=== PATIENT | male | born 1965 | race Caucasian/White ===

== ENCOUNTER 2018-10-21 16:11 | Inpatient (IN) | payer MEDICAID ==
[2018-10-21] MEDS: LORAZEPAM 2 MG INJ IV ×2 (16:30→16:43)
[2018-10-21 16:36] LABS: ADD MAN DIFF? NO
[2018-10-21 16:39] LABS: ABNORMAL IP MESSAGE 1; BASOPHIL # 0.1 10^3/ul (0.0-0.1); BASOPHILS % 0.5 % (0.0-2.0); EOSINOPHILS # 0.3 10^3/ul (0.0-0.5); EOSINOPHILS % 2.3 % (0.0-7.0); HEMATOCRIT 40.8 % (42.0-52.0); HEMOGLOBIN 13.9 g/dl (14.0-18.0); LYMPHOCYTES # 5.3 10^3/ul (0.8-2.9); LYMPHOCYTES % 40.9 % (15.0-51.0); MEAN CORPUSCULAR HEMOGLOBIN 28.8 pg (29.0-33.0); MEAN CORPUSCULAR HGB CONC 34.1 g/dl (32.0-37.0); MEAN CORPUSCULAR VOLUME 84.6 fl (82.0-101.0); MEAN PLATELET VOLUME 11.5 fl (7.4-10.4); MONOCYTES % 7.7 % (0.0-11.0); NEUTROPHIL # 6.3 10^3/ul (1.6-7.5); NEUTROPHILS % 48.1 % (39.0-77.0); PLATELET COUNT 322 10^3/UL (140-415); POSITIVE DIFF @See below; RED BLOOD COUNT 4.82 10^6/ul (4.70-6.10); RED CELL DISTRIBUTION WIDTH 12.7 % (11.5-14.5)
[2018-10-21 16:55] LABS: ALANINE AMINOTRANSFERASE 127 IU/L (13-69); ALBUMIN 4.5 g/dl (3.3-4.9); ALBUMIN/GLOBULIN RATIO 1.55; ALKALINE PHOSPHATASE 84 IU/L (42-121); ANION GAP 18 (5-13); ASPARTATE AMINO TRANSFERASE 181 IU/L (15-46); BILIRUBIN,INDIRECT 0.5 mg/dl (0-1.1); BILIRUBIN,TOTAL 0.5 mg/dl (0.2-1.3); BLOOD UREA NITROGEN 26 mg/dl (7-20); CALCIUM 8.9 mg/dl (8.4-10.2); CARBON DIOXIDE 19 mmol/L (21-31); CHLORIDE 106 mmol/L (97-110); CREATININE 1.76 mg/dl (0.61-1.24); Estimated GFR 41 mL/min (>60); GLUCOSE 246 mg/dl (70-220); POTASSIUM 3.6 mmol/L (3.5-5.1); SODIUM 143 mmol/L (135-144); TOTAL PROTEIN 7.4 g/dl (6.1-8.1)
[2018-10-21 16:58] LABS: INR 1.02; PROTIME 13.5 Sec (11.9-14.9); PT RATIO 1.1
[2018-10-21 16:59] LABS: PARTIAL THROMBOPLASTIN TIME 28.3 Sec (23.0-35.0)
[2018-10-21 17:07] LABS: TROPONIN-I < 0.012 ng/ml (0.000-0.120)
[2018-10-21 17:12] LABS: FREE THYROXINE INDEX (Calc) 2.41 ug/ml (0.65-3.89); T3 UPTAKE 36.5 % (23.5-40.5); T4 (THYROXINE) 6.6 ug/dl (5.5-11.0)
[2018-10-21] MEDS: CEFEPIME 2GM/50 ML (PMX) 50 ML IVPB (17:25)
[2018-10-21] MEDS: SODIUM CHLORIDE 0.9% 1L BAG IV* (17:26)
[2018-10-21] MEDS: VECURONIUM 10 MG VIAL IV (17:34)
[2018-10-21 17:36] LABS: ADD UMIC YES; UR ASCORBIC ACID NEGATIVE (NEGATIVE); UR BACTERIA FEW /HPF (NONE SEEN); UR BILIRUBIN (Dip) NEGATIVE (NEGATIVE); UR BLOOD (Dip) 1+ mg/dL (NEGATIVE); UR CLARITY SLIGHTLY CLOUDY (CLEAR); UR COLOR YELLOW (YELLOW); UR GLUCOSE (Dip) 3+ mg/dL (NEGATIVE); UR KETONES (Dip) TRACE mg/dL (NEGATIVE); UR LEUKOCYTE ESTERASE (Dip) NEGATIVE Leu/ul (NEGATIVE); UR MUCUS FEW /HPF (NONE SEEN); UR NITRITE (Dip) NEGATIVE (NEGATIVE); UR RBC 3 /HPF (0-5); UR SPECIFIC GRAVITY (Dip) 1.015 (1.003-1.030); UR TOTAL PROTEIN (Dip) 2+ mg/dl (NEGATIVE); UR UROBILINOGEN (Dip) NEGATIVE (NEGATIVE); UR WBC 3 /HPF (0-5)
[2018-10-21] MEDS: VANCOMYCIN 1 GM (PMX) 250 ML IVPB (17:47)
[2018-10-21 18:02] LABS: ETHANOL < 10.0 mg/dl (0-0)
[2018-10-21 18:03] LABS: AMPHETAMINE/METHAMPHETAMINE Negative (NEGATIVE); BARBITURATES Negative (NEGATIVE); BENZODIAZEPINES Negative (NEGATIVE); CANNABINOIDS Negative (NEGATIVE); COCAINE Negative (NEGATIVE); OPIATES Negative (NEGATIVE)
[2018-10-21] MEDS ORDERED: PROPOFOL 100 ML IV (18:41)
[2018-10-21] MEDS ORDERED: PROPOFOL 100 ML (18:44)
[2018-10-21] MEDS: PROPOFOL 100 ML IV (18:50)
[2018-10-21 19:06] LABS: LACTIC ACID 2.4 mmol/L (0.5-2.0)
[2018-10-21] MEDS ORDERED: NACL 0.9% 3 ML SYG IV (19:30)
[2018-10-21 19:58] LABS: AADO2 Arterial 131.2 mmHg (7.0-24.0); Allen Test ACCEPTAB; Arterial Base Excess -5.8 mmol/L (-3.0-3); Arterial Blood Gas Oxygen Sat 99.3 mmHG (95.0-98.0); Arterial COHb 0.3 % (0.0-3.0); Arterial Fraction of Oxyhgb 98.7 % (93.0-99.0); Arterial HCO3 20.2 mmol/L (22.0-26.0); Arterial MetHb 0.3 % (0.0-1.5); Arterial pCO2 41.6 mmhg (35-45); MODE VENT - AC; Site Right Radial
[2018-10-21] MEDS ORDERED: VANCOMYCIN IV PER PHARMACY XX (20:00)
[2018-10-21] MEDS: THIAMINE 100 MG in SOD CHLORIDE 0.9% 100 ML IV (20:08)
[2018-10-21] MEDS: SOD CHLORIDE 0.9% 1,000 ML IV (20:08)
[2018-10-21] MEDS: THIAMINE 200 MG INJ IV (20:09)
[2018-10-21] MEDS: VANCOMYCIN 500 MG (PMX) 100 ML IVPB (20:51)
[2018-10-21 21:21] LABS: LACTIC ACID 2.2 mmol/L (0.5-2.0)
[2018-10-21] MEDS: PIPER-TAZO 3.375 GM IV (PMX) 100 ML IVPB (22:06)
[2018-10-21] MEDS: INSULIN GLARGINE [LANTus] (100 UNITS/ML) SYG SC (23:48)
[2018-10-21] MEDS: INSULIN ASPART [NOVOLOG] 3 ML PEN SC (23:49)
[2018-10-22] MEDS: PROPOFOL 100 ML IV ×4 (00:40→20:52)
[2018-10-22] MEDS: INSULIN ASPART [NOVOLOG] 3 ML PEN SC ×6 (01:00→20:12)
[2018-10-22] MEDS: ACCU-CHEK XX (01:09)
[2018-10-22] MEDS: PIPER-TAZO 3.375 GM IV (PMX) 100 ML IVPB ×3 (05:06→22:05)
[2018-10-22 05:36] LABS: ADD MAN DIFF? NO
[2018-10-22 05:47] LABS: BASOPHILS % 0.3 % (0.0-2.0); EOSINOPHILS # 0.1 10^3/ul (0.0-0.5); EOSINOPHILS % 0.8 % (0.0-7.0); HEMATOCRIT 34.9 % (42.0-52.0); HEMOGLOBIN 11.7 g/dl (14.0-18.0); LYMPHOCYTES # 1.4 10^3/ul (0.8-2.9); MEAN CORPUSCULAR HEMOGLOBIN 29.1 pg (29.0-33.0); MEAN CORPUSCULAR HGB CONC 33.5 g/dl (32.0-37.0); MEAN CORPUSCULAR VOLUME 86.8 fl (82.0-101.0); MEAN PLATELET VOLUME 11.5 fl (7.4-10.4); MONOCYTES % 9.1 % (0.0-11.0); NEUTROPHIL # 8.4 10^3/ul (1.6-7.5); NEUTROPHILS % 76.4 % (39.0-77.0); PLATELET COUNT 228 10^3/UL (140-415); RED BLOOD COUNT 4.02 10^6/ul (4.70-6.10); RED CELL DISTRIBUTION WIDTH 12.7 % (11.5-14.5)
[2018-10-22 05:55] LABS: ALANINE AMINOTRANSFERASE 93 IU/L (13-69); ALBUMIN 3.4 g/dl (3.3-4.9); ALKALINE PHOSPHATASE 65 IU/L (42-121); ASPARTATE AMINO TRANSFERASE 116 IU/L (15-46); BILIRUBIN,INDIRECT 0.6 mg/dl (0-1.1); BILIRUBIN,TOTAL 0.6 mg/dl (0.2-1.3)
[2018-10-22 06:04] LABS: ALANINE AMINOTRANSFERASE 98 IU/L (13-69); ALBUMIN 3.3 g/dl (3.3-4.9); ALBUMIN/GLOBULIN RATIO 1.26; ALKALINE PHOSPHATASE 54 IU/L (42-121); ANION GAP 7 (5-13); ASPARTATE AMINO TRANSFERASE 128 IU/L (15-46); BILIRUBIN,INDIRECT 0.7 mg/dl (0-1.1); BILIRUBIN,TOTAL 0.7 mg/dl (0.2-1.3); BLOOD UREA NITROGEN 18 mg/dl (7-20); CALCIUM 7.9 mg/dl (8.4-10.2); CARBON DIOXIDE 23 mmol/L (21-31); CHLORIDE 111 mmol/L (97-110); CREATININE 0.73 mg/dl (0.61-1.24); Estimated GFR > 60 mL/min (>60); GLUCOSE 75 mg/dl (70-220); POTASSIUM 4.4 mmol/L (3.5-5.1); SODIUM 141 mmol/L (135-144); TOTAL PROTEIN 5.9 g/dl (6.1-8.1)
[2018-10-22 06:06] LABS: AADO2 Arterial 108.5 mmHg (7.0-24.0); Allen Test ACCEPTAB; Arterial Base Excess -1.6 mmol/L (-3.0-3); Arterial Blood Gas Oxygen Sat 98.3 mmHG (95.0-98.0); Arterial COHb 0.3 % (0.0-3.0); Arterial Fraction of Oxyhgb 97.8 % (93.0-99.0); Arterial HCO3 21.8 mmol/L (22.0-26.0); Arterial MetHb 0.2 % (0.0-1.5); Arterial pCO2 32.7 mmhg (35-45); Blood Gas Mean Airway Pressure 10; MODE VENT - AC; Site Right Radial
[2018-10-22 07:26] LABS: CREATINE KINASE 701 IU/L (23-200)
[2018-10-22 07:39] LABS: CK INDEX 2.8
[2018-10-22] MEDS ORDERED: HEPARIN 1000 UNITS/ML 10 ML INJ IV (08:00)
[2018-10-22] MEDS: HEPARIN 25000 UNITS/250 ML 250 ML IV (08:18)
[2018-10-22] MEDS: HEPARIN 1000 UNITS/ML 10 ML INJ IV (08:20)
[2018-10-22] MEDS: SOD CHLORIDE 0.9% 1,000 ML IV ×2 (08:23→20:17)
[2018-10-22 08:39] LABS: ADD MAN DIFF? NO
[2018-10-22 08:49] LABS: BASOPHILS % 0.2 % (0.0-2.0); EOSINOPHILS # 0.1 10^3/ul (0.0-0.5); EOSINOPHILS % 1.3 % (0.0-7.0); HEMATOCRIT 33.5 % (42.0-52.0); HEMOGLOBIN 11.6 g/dl (14.0-18.0); LYMPHOCYTES # 1.5 10^3/ul (0.8-2.9); MEAN CORPUSCULAR HEMOGLOBIN 29.2 pg (29.0-33.0); MEAN CORPUSCULAR HGB CONC 34.6 g/dl (32.0-37.0); MEAN CORPUSCULAR VOLUME 84.4 fl (82.0-101.0); MEAN PLATELET VOLUME 11.4 fl (7.4-10.4); MONOCYTE # 0.9 10^3/ul (0.3-0.9); MONOCYTES % 8.6 % (0.0-11.0); NEUTROPHIL # 7.4 10^3/ul (1.6-7.5); NEUTROPHILS % 74.5 % (39.0-77.0); PLATELET COUNT 233 10^3/UL (140-415); RED BLOOD COUNT 3.97 10^6/ul (4.70-6.10); RED CELL DISTRIBUTION WIDTH 12.8 % (11.5-14.5)
[2018-10-22 08:49] LABS: WHITE BLOOD COUNT 9.9 10^3/ul (4.8-10.8)
[2018-10-22 09:08] LABS: INR 1.11; PROTIME 14.4 Sec (11.9-14.9); PT RATIO 1.1
[2018-10-22 09:09] LABS: PARTIAL THROMBOPLASTIN TIME 32.1 Sec (23.0-35.0)
[2018-10-22] MEDS: FENTAnyl (DRIP) 1000 mcg/100mL 100 ML IV (09:23)
[2018-10-22 10:39] LABS: CREATINE KINASE 676 IU/L (23-200)
[2018-10-22] MEDS: ASPIRIN 325 MG TAB PO (11:11)
[2018-10-22] MEDS: METOPROLOL 25 MG TAB PO ×2 (14:15→20:17)
[2018-10-22] MEDS: VANCOMYCIN 1 GM 250 ML IVPB (14:17)
[2018-10-22 15:41] LABS: PARTIAL THROMBOPLASTIN TIME 61.5 Sec (23.0-35.0)
[2018-10-22 17:06] LABS: AMMONIA 17 umol/l (9-30)
[2018-10-22] MEDS: ACYCLOVIR 500 MG in SOD CHLORIDE 0.9% 100 ML IVPB ×2 (17:33→22:41)
[2018-10-22] MEDS: INSULIN GLARGINE [LANTus] (100 UNITS/ML) SYG SC (20:00)
[2018-10-22] MEDS: ACETAMINOPHEN 650MG/20.3ML CUP NGT (20:39)
[2018-10-22 21:54] LABS: PARTIAL THROMBOPLASTIN TIME 52.7 Sec (23.0-35.0)
[2018-10-22 23:12] LABS: HIV 1&2 ANTIBODY NEGATIVE (NEGATIVE)
[2018-10-23] MEDS: INSULIN ASPART [NOVOLOG] 3 ML PEN SC ×6 (01:00→20:12)
[2018-10-23] MEDS: ACCU-CHEK XX (01:19)
[2018-10-23] MEDS: VANCOMYCIN 1 GM 250 ML IVPB ×2 (01:21→11:36)
[2018-10-23] MEDS: PROPOFOL 100 ML IV ×2 (02:50→11:40)
[2018-10-23 03:12] LABS: ADD MAN DIFF? NO
[2018-10-23 03:13] LABS: WHITE BLOOD COUNT 6.6 10^3/ul (4.8-10.8)
[2018-10-23 03:13] LABS: BASOPHILS % 0.5 % (0.0-2.0); EOSINOPHILS # 0.2 10^3/ul (0.0-0.5); EOSINOPHILS % 2.7 % (0.0-7.0); LYMPHOCYTES # 1.6 10^3/ul (0.8-2.9); LYMPHOCYTES % 24.1 % (15.0-51.0); MEAN PLATELET VOLUME 11.7 fl (7.4-10.4); MONOCYTE # 0.6 10^3/ul (0.3-0.9); MONOCYTES % 8.9 % (0.0-11.0); NEUTROPHIL # 4.2 10^3/ul (1.6-7.5); NEUTROPHILS % 63.3 % (39.0-77.0); PLATELET COUNT 196 10^3/UL (140-415); POSITIVE DIFF @See below
[2018-10-23 03:34] LABS: PARTIAL THROMBOPLASTIN TIME 67.5 Sec (23.0-35.0)
[2018-10-23 03:35] LABS: ALANINE AMINOTRANSFERASE 75 IU/L (13-69); ALBUMIN 2.5 g/dl (3.3-4.9); ALKALINE PHOSPHATASE 52 IU/L (42-121); ANION GAP 10 (5-13); ASPARTATE AMINO TRANSFERASE 69 IU/L (15-46); BILIRUBIN,INDIRECT 0.3 mg/dl (0-1.1); BILIRUBIN,TOTAL 0.3 mg/dl (0.2-1.3); BLOOD UREA NITROGEN 9 mg/dl (7-20); CALCIUM 6.1 mg/dl (8.4-10.2); CARBON DIOXIDE 17 mmol/L (21-31); CHLORIDE 105 mmol/L (97-110); CREATININE 0.64 mg/dl (0.61-1.24); Estimated GFR > 60 mL/min (>60); GLUCOSE 82 mg/dl (70-220); POTASSIUM 3.2 mmol/L (3.5-5.1); SODIUM 132 mmol/L (135-144)
[2018-10-23 04:15] LABS: HEMOGLOBIN 10.3 g/dl (14.0-18.0); RED BLOOD COUNT 3.42 10^6/ul (4.70-6.10)
[2018-10-23 04:16] LABS: HEMATOCRIT 29.1 % (42.0-52.0); MEAN CORPUSCULAR HEMOGLOBIN 30.1 pg (29.0-33.0); MEAN CORPUSCULAR HGB CONC 35.4 g/dl (32.0-37.0); MEAN CORPUSCULAR VOLUME 85.1 fl (82.0-101.0)
[2018-10-23 04:26] LABS: PHOSPHORUS 2.6 mg/dl (2.5-4.9)
[2018-10-23 04:26] LABS: MAGNESIUM 1.6 mg/dl (1.7-2.5)
[2018-10-23] MEDS: POTASSIUM CHLORIDE 20 MEQ POWDER FOR ORAL SOLN NGT (05:21)
[2018-10-23] MEDS: PIPER-TAZO 3.375 GM IV (PMX) 100 ML IVPB ×3 (05:22→21:24)
[2018-10-23] MEDS: MAGNESIUM SULFATE 3 GM in DEXTROSE 5% 100 ML IVPB (06:21)
[2018-10-23] MEDS: ACYCLOVIR 500 MG in SOD CHLORIDE 0.9% 100 ML IVPB ×3 (06:21→21:24)
[2018-10-23] MEDS: ASPIRIN 81 MG TAB PO (08:15)
[2018-10-23] MEDS: HEPARIN 25000 UNITS/250 ML 250 ML IV (08:17)
[2018-10-23] MEDS: METOPROLOL 25 MG TAB PO ×2 (08:18→20:11)
[2018-10-23] MEDS: SOD CHLORIDE 0.9% 1,000 ML IV ×2 (08:20→11:00)
[2018-10-23 09:17] LABS: ANION GAP 5 (5-13); BLOOD UREA NITROGEN 10 mg/dl (7-20); CALCIUM 7.6 mg/dl (8.4-10.2); CARBON DIOXIDE 23 mmol/L (21-31); CHLORIDE 113 mmol/L (97-110); CREATININE 0.78 mg/dl (0.61-1.24); Estimated GFR > 60 mL/min (>60); GLUCOSE 113 mg/dl (70-220); MAGNESIUM 2.6 mg/dl (1.7-2.5); POTASSIUM 4.4 mmol/L (3.5-5.1); SODIUM 141 mmol/L (135-144)
[2018-10-23 09:20] LABS: AADO2 Arterial 50.3 mmHg (7.0-24.0); Allen Test ACCEPTAB; Arterial Blood Gas Oxygen Sat 97.8 mmHG (95.0-98.0); Arterial COHb 0.3 % (0.0-3.0); Arterial Fraction of Oxyhgb 97.3 % (93.0-99.0); Arterial HCO3 19.1 mmol/L (22.0-26.0); Arterial MetHb 0.2 % (0.0-1.5); Arterial pCO2 32.5 mmhg (35-45); MODE VENT - AC; Site Right Radial
[2018-10-23] MEDS: FENTAnyl (DRIP) 1000 mcg/100mL 100 ML IV (09:24)
[2018-10-23 11:14] LABS: CREATINE KINASE 300 IU/L (23-200)
[2018-10-23 11:15] LABS: PARTIAL THROMBOPLASTIN TIME 67.6 Sec (23.0-35.0)
[2018-10-23 11:24] LABS: CK INDEX 1.4
[2018-10-23 11:27] LABS: CK-MB 4.31 ng/ml (0.0-2.4)
[2018-10-23] MEDS: DEXMEDETOMIDINE IN DEXTROSE 5% 50 ML IV (12:37)
[2018-10-23 17:10] LABS: PARTIAL THROMBOPLASTIN TIME 76.6 Sec (23.0-35.0)
[2018-10-23 17:53] LABS: AADO2 Arterial 69.5 mmHg (7.0-24.0); Allen Test ACCEPTAB; Arterial Base Excess -3.5 mmol/L (-3.0-3); Arterial COHb 0.3 % (0.0-3.0); Arterial Fraction of Oxyhgb 96.7 % (93.0-99.0); Arterial HCO3 21.1 mmol/L (22.0-26.0); Arterial MetHb 0 % (0.0-1.5); Arterial pCO2 36.6 mmhg (35-45); Blood Gas PS 10; MODE VENT - CPAP; Site Right Radial
[2018-10-23] MEDS: INSULIN GLARGINE [LANTus] (100 UNITS/ML) SYG SC (20:12)
[2018-10-23] MEDS: ATORVASTATIN 40 MG TAB PO (20:18)
[2018-10-24 00:08] LABS: PARTIAL THROMBOPLASTIN TIME 68.5 Sec (23.0-35.0)
[2018-10-24] MEDS: INSULIN ASPART [NOVOLOG] 3 ML PEN SC ×6 (00:52→20:29)
[2018-10-24] MEDS: VANCOMYCIN 1 GM 250 ML IVPB (01:52)
[2018-10-24] MEDS: ACCU-CHEK XX (01:55)
[2018-10-24 03:08] LABS: VANCOMYCIN,TROUGH 7.1 ug/ml (10.0-20.0)
[2018-10-24] MEDS: PIPER-TAZO 3.375 GM IV (PMX) 100 ML IVPB (05:09)
[2018-10-24] MEDS: ACYCLOVIR 500 MG in SOD CHLORIDE 0.9% 100 ML IVPB (05:59)
[2018-10-24 07:06] LABS: PARTIAL THROMBOPLASTIN TIME 77.3 Sec (23.0-35.0)
[2018-10-24] MEDS: HEPARIN 25000 UNITS/250 ML 250 ML IV ×3 (07:14→14:04)
[2018-10-24] MEDS: ASPIRIN 81 MG TAB PO (08:49)
[2018-10-24] MEDS: METOPROLOL 25 MG TAB PO ×2 (08:50→20:16)
[2018-10-24 11:06] LABS: CREATINE KINASE 194 IU/L (23-200)
[2018-10-24 11:20] LABS: CK-MB 1.86 ng/ml (0.0-2.4)
[2018-10-24] MEDS: VANCOMYCIN HCL 1.25 GM in SOD CHLORIDE 0.9% 250 ML IVPB (12:38)
[2018-10-24 13:52] LABS: PARTIAL THROMBOPLASTIN TIME 54.8 Sec (23.0-35.0)
[2018-10-24] MEDS: ATORVASTATIN 40 MG TAB PO (20:15)
[2018-10-24] MEDS: ALBUTEROL/IPRATROPIUM (NEB) 3 ML AMP HHN (20:25)
[2018-10-24] MEDS: INSULIN GLARGINE [LANTus] (100 UNITS/ML) SYG SC (20:28)
[2018-10-24 21:06] LABS: PARTIAL THROMBOPLASTIN TIME 38.7 Sec (23.0-35.0)
[2018-10-25] MEDS: INSULIN ASPART [NOVOLOG] 3 ML PEN SC ×5 (01:00→21:00)
[2018-10-25] MEDS: ALBUTEROL/IPRATROPIUM (NEB) 3 ML AMP HHN ×6 (01:32→20:32)
[2018-10-25] MEDS ORDERED: GLUCAGON 1 MG INJ IM (03:30)
[2018-10-25] MEDS ORDERED: DEXTROSE 50% 50 ML SYRINGE IV ×2 (03:30)
[2018-10-25] MEDS ORDERED: GLUCOSE GEL 15 GRAM TUBE BUCCAL (03:30)
[2018-10-25] MEDS ORDERED: GLUCOSE GEL 15 GRAM TUBE PO ×2 (03:30)
[2018-10-25 05:51] LABS: ADD MAN DIFF? NO
[2018-10-25 05:59] LABS: BASOPHILS % 0.5 % (0.0-2.0); EOSINOPHILS # 0.2 10^3/ul (0.0-0.5); EOSINOPHILS % 3.2 % (0.0-7.0); HEMOGLOBIN 11.7 g/dl (14.0-18.0); LYMPHOCYTES # 1.3 10^3/ul (0.8-2.9); MEAN CORPUSCULAR HEMOGLOBIN 28.6 pg (29.0-33.0); MEAN CORPUSCULAR HGB CONC 33.4 g/dl (32.0-37.0); MEAN CORPUSCULAR VOLUME 85.6 fl (82.0-101.0); MEAN PLATELET VOLUME 11.6 fl (7.4-10.4); MONOCYTE # 0.6 10^3/ul (0.3-0.9); MONOCYTES % 10.4 % (0.0-11.0); NEUTROPHIL # 3.9 10^3/ul (1.6-7.5); NEUTROPHILS % 64.4 % (39.0-77.0); PLATELET COUNT 240 10^3/UL (140-415); RED BLOOD COUNT 4.09 10^6/ul (4.70-6.10); RED CELL DISTRIBUTION WIDTH 12.7 % (11.5-14.5)
[2018-10-25] MEDS ORDERED: HEPARIN 5,000 UNIT/1 ML VIAL SC (06:00)
[2018-10-25 06:45] LABS: ALANINE AMINOTRANSFERASE 51 IU/L (13-69); ALBUMIN 3.5 g/dl (3.3-4.9); ALBUMIN/GLOBULIN RATIO 1.12; ALKALINE PHOSPHATASE 63 IU/L (42-121); ANION GAP 8 (5-13); ASPARTATE AMINO TRANSFERASE 28 IU/L (15-46); BILIRUBIN,INDIRECT 0.5 mg/dl (0-1.1); BILIRUBIN,TOTAL 0.5 mg/dl (0.2-1.3); BLOOD UREA NITROGEN 9 mg/dl (7-20); CALCIUM 8.8 mg/dl (8.4-10.2); CARBON DIOXIDE 30 mmol/L (21-31); CHLORIDE 105 mmol/L (97-110); Estimated GFR > 60 mL/min (>60); GLUCOSE 123 mg/dl (70-220); SODIUM 143 mmol/L (135-144); TOTAL PROTEIN 6.6 g/dl (6.1-8.1)
[2018-10-25] MEDS: METOPROLOL 25 MG TAB PO ×2 (06:47→21:02)
[2018-10-25] MEDS: ASPIRIN 81 MG TAB PO (07:28)
[2018-10-25] MEDS ORDERED: METOPROLOL 5 MG INJ IV (09:00)
[2018-10-25] MEDS ORDERED: METOPROLOL 5 MG INJ (11:00)
[2018-10-25] MEDS ORDERED: NITROGLYCERIN AEROSOL (4.9 GM) (11:20)
[2018-10-25] MEDS: ATORVASTATIN 40 MG TAB PO (21:01)
[2018-10-25] MEDS: HEPARIN 5,000 UNIT/1 ML VIAL SC ×2 (21:09→22:00)
[2018-10-25] MEDS: INSULIN GLARGINE [LANTus] (100 UNITS/ML) SYG SC (21:09)
[2018-10-26] MEDS: ALBUTEROL/IPRATROPIUM (NEB) 3 ML AMP HHN ×6 (01:44→20:41)
[2018-10-26] MEDS: ACCU-CHEK XX (01:49)
[2018-10-26] MEDS: HEPARIN 5,000 UNIT/1 ML VIAL SC ×3 (06:00→23:04)
[2018-10-26] MEDS: INSULIN ASPART [NOVOLOG] 3 ML PEN SC ×4 (08:00→20:30)
[2018-10-26] MEDS: ASPIRIN 81 MG TAB PO (08:20)
[2018-10-26] MEDS: METOPROLOL 25 MG TAB PO ×2 (08:24→20:30)
[2018-10-26] MEDS ORDERED: HEPARIN 1000 UNITS/ML 10 ML INJ (12:43)
[2018-10-26] MEDS ORDERED: IODIXANOL LOCM 100 ML BTL (12:43)
[2018-10-26] MEDS ORDERED: HEPARIN 1000 UNITS/NS (A-LINE) 1,000 ML (12:43)
[2018-10-26] MEDS ORDERED: LIDOCAINE 1% (MDV) 20 ML INJ (12:43)
[2018-10-26] MEDS ORDERED: VERAPAMIL 5 MG INJ (12:43)
[2018-10-26] MEDS ORDERED: NITROGLYCERIN (IC) 100 MCG/ML INJ (12:44)
[2018-10-26] MEDS ORDERED: MIDAZOLAM 1 MG/ML 2 ML INJ (12:58)
[2018-10-26] MEDS ORDERED: FENTAnyl 50 MCG/ML VIAL (12:58)
[2018-10-26] MEDS: SOD CHLORIDE 0.9% 1,000 ML IV (14:27)
[2018-10-26] MEDS: ATORVASTATIN 40 MG TAB PO (20:30)
[2018-10-26] MEDS: INSULIN GLARGINE [LANTus] (100 UNITS/ML) SYG SC (20:43)
[2018-10-27] MEDS: ALBUTEROL/IPRATROPIUM (NEB) 3 ML AMP HHN ×6 (01:43→20:13)
[2018-10-27] MEDS: ACCU-CHEK XX (02:17)
[2018-10-27] MEDS: HEPARIN 5,000 UNIT/1 ML VIAL SC ×3 (06:32→21:45)
[2018-10-27] MEDS: INSULIN ASPART [NOVOLOG] 3 ML PEN SC ×4 (07:42→21:45)
[2018-10-27] MEDS: METOPROLOL 25 MG TAB PO ×2 (08:57→21:54)
[2018-10-27] MEDS: ASPIRIN 81 MG TAB PO (08:57)
[2018-10-27] MEDS: CLOPIDOGREL 75 MG TAB PO (08:57)
[2018-10-27 11:16] LABS: D-DIMER 425.72 ng/ml (<460)
[2018-10-27 11:44] LABS: ADD MAN DIFF? NO
[2018-10-27 11:46] LABS: BASOPHILS % 0.4 % (0.0-2.0); EOSINOPHILS # 0.3 10^3/ul (0.0-0.5); EOSINOPHILS % 4.1 % (0.0-7.0); HEMATOCRIT 36.9 % (42.0-52.0); HEMOGLOBIN 12.6 g/dl (14.0-18.0); LYMPHOCYTES # 1.1 10^3/ul (0.8-2.9); LYMPHOCYTES % 16.2 % (15.0-51.0); MEAN CORPUSCULAR HEMOGLOBIN 29.4 pg (29.0-33.0); MEAN CORPUSCULAR HGB CONC 34.1 g/dl (32.0-37.0); MEAN CORPUSCULAR VOLUME 86.2 fl (82.0-101.0); MEAN PLATELET VOLUME 11.3 fl (7.4-10.4); MONOCYTE # 0.5 10^3/ul (0.3-0.9); NEUTROPHILS % 71.7 % (39.0-77.0); PLATELET COUNT 289 10^3/UL (140-415); RED BLOOD COUNT 4.28 10^6/ul (4.70-6.10); RED CELL DISTRIBUTION WIDTH 12.6 % (11.5-14.5)
[2018-10-27 11:52] LABS: ALANINE AMINOTRANSFERASE 41 IU/L (13-69); ALBUMIN 3.8 g/dl (3.3-4.9); ALBUMIN/GLOBULIN RATIO 1.22; ALKALINE PHOSPHATASE 73 IU/L (42-121); ANION GAP 10 (5-13); ASPARTATE AMINO TRANSFERASE 59 IU/L (15-46); BILIRUBIN,INDIRECT 0.6 mg/dl (0-1.1); BILIRUBIN,TOTAL 0.6 mg/dl (0.2-1.3); BLOOD UREA NITROGEN 16 mg/dl (7-20); CARBON DIOXIDE 27 mmol/L (21-31); CHLORIDE 103 mmol/L (97-110); CREATININE 0.71 mg/dl (0.61-1.24); Estimated GFR > 60 mL/min (>60); GLUCOSE 222 mg/dl (70-220); POTASSIUM 4.4 mmol/L (3.5-5.1); SODIUM 140 mmol/L (135-144); TOTAL PROTEIN 6.9 g/dl (6.1-8.1)
[2018-10-27] MEDS: SOD CHLORIDE 0.9% 100 ML ×2 (13:15→14:00)
[2018-10-27] MEDS: IOHEXOL 100 ML ×2 (13:16→13:59)
[2018-10-27] MEDS: INSULIN GLARGINE [LANTus] (100 UNITS/ML) SYG SC (21:53)
[2018-10-27] MEDS: ATORVASTATIN 40 MG TAB PO (21:54)
[2018-10-28] MEDS: ALBUTEROL/IPRATROPIUM (NEB) 3 ML AMP HHN ×4 (01:49→12:50)
[2018-10-28] MEDS: ACCU-CHEK XX (02:00)
[2018-10-28 05:46] LABS: ADD MAN DIFF? NO
[2018-10-28 05:48] LABS: BASOPHIL # 0.1 10^3/ul (0.0-0.1); BASOPHILS % 0.7 % (0.0-2.0); EOSINOPHILS # 0.4 10^3/ul (0.0-0.5); EOSINOPHILS % 4.8 % (0.0-7.0); HEMATOCRIT 41.9 % (42.0-52.0); HEMOGLOBIN 14.1 g/dl (14.0-18.0); LYMPHOCYTES # 1.7 10^3/ul (0.8-2.9); LYMPHOCYTES % 22.9 % (15.0-51.0); MEAN CORPUSCULAR HEMOGLOBIN 29.3 pg (29.0-33.0); MEAN CORPUSCULAR HGB CONC 33.7 g/dl (32.0-37.0); MEAN CORPUSCULAR VOLUME 86.9 fl (82.0-101.0); MEAN PLATELET VOLUME 10.8 fl (7.4-10.4); MONOCYTE # 0.6 10^3/ul (0.3-0.9); MONOCYTES % 7.5 % (0.0-11.0); NEUTROPHIL # 4.7 10^3/ul (1.6-7.5); NEUTROPHILS % 63.4 % (39.0-77.0); PLATELET COUNT 327 10^3/UL (140-415); RED BLOOD COUNT 4.82 10^6/ul (4.70-6.10); RED CELL DISTRIBUTION WIDTH 12.5 % (11.5-14.5)
[2018-10-28 05:48] LABS: WHITE BLOOD COUNT 7.5 10^3/ul (4.8-10.8)
[2018-10-28] MEDS: HEPARIN 5,000 UNIT/1 ML VIAL SC ×2 (06:06→14:00)
[2018-10-28 06:47] LABS: ANION GAP 12 (5-13); BLOOD UREA NITROGEN 16 mg/dl (7-20); CALCIUM 9.6 mg/dl (8.4-10.2); CARBON DIOXIDE 29 mmol/L (21-31); CHLORIDE 102 mmol/L (97-110); CREATININE 0.84 mg/dl (0.61-1.24); Estimated GFR > 60 mL/min (>60); GLUCOSE 155 mg/dl (70-220); MAGNESIUM 1.7 mg/dl (1.7-2.5); POTASSIUM 4.4 mmol/L (3.5-5.1); SODIUM 143 mmol/L (135-144)
[2018-10-28] MEDS: INSULIN ASPART [NOVOLOG] 3 ML PEN SC ×2 (08:20→12:07)
[2018-10-28] MEDS: ASPIRIN 81 MG TAB PO (08:39)
[2018-10-28] MEDS: CLOPIDOGREL 75 MG TAB PO (08:39)
[2018-10-28] MEDS: METOPROLOL 25 MG TAB PO (08:43)
== END 2018-10-28 15:50 | disposition home or self-care (01) | DRG 208 ==
LOC: ICU 10-24 01:00 → 6WM 10-24 15:23 → E/R 16:11 → ICU 19:00
PROVIDERS: Internal Medicine
PROC: 4A023N7 Measurement of Cardiac Sampling and Pressure, Left Heart, Percutaneous Approach (ICD-10-PCS; 2018-10-26 12:30)
PROC: B215YZZ Fluoroscopy of Left Heart using Other Contrast (ICD-10-PCS; 2018-10-26 12:30)
PROC: 0BH17EZ Insertion of Endotracheal Airway into Trachea, Via Natural or Artificial Opening (ICD-10-PCS; principal; 2018-10-26 12:34)
PROC: 5A1945Z Respiratory Ventilation, 24-96 Consecutive Hours (ICD-10-PCS; 2018-10-26 12:34)
DX: J96.00 Acute respiratory failure, unspecified whether with hypoxia or hypercapnia (principal); I21.4 Non-ST elevation (NSTEMI) myocardial infarction; G93.40 Encephalopathy, unspecified; N17.9 Acute kidney failure, unspecified; E87.2 Acidosis; E11.9 Type 2 diabetes mellitus without complications; I25.10 Atherosclerotic heart disease of native coronary artery without angina pectoris; Z79.4 Long term (current) use of insulin; Z79.82 Long term (current) use of aspirin
CPT/HCPCS: 31500; 36415; 36600; 70140; 70450; 70551; 71045; 71275; 72125; 72170; 75574; 76705; 80048; 80053; 80076; 80202; 80307; 81001; 82140; 82550; 82553; 82803; 82962; 83036; 83605; 83735; 84100; 84436; 84479; 84484; 85025; 85378; 85610; 85730; 86703; 87040-91; 87081; 87086; 92610; 93005; 93306; 93458; 93970; 94002; 94003; 94640; 94664; 94770; 96365; 96367; 96375; 99285-25